=== PATIENT | male | born 1990 | race American Indian/Alaskan Native ===

== ENCOUNTER 2017-01-29 13:23 | Emergency (ER) | payer OTHER ==
[2017-01-29 13:34] VITALS: BP 156/96
[2017-01-29] MEDS ORDERED: TORADOL IM ONE (14:24)
--- NOTE | 2017-01-29 15:26 | XRay Report ---
FINAL REPORT EXAM: XR KNEE 3V RT HISTORY: RT KNEE PAIN TECHNIQUE: AP, oblique, and lateral views of the right knee PRIORS: None. FINDINGS: No acute fracture or dislocation is seen. The soft tissues demonstrate a small suprapatellar joint effusion. Joint spaces are maintained and bony mineralization is normal. IMPRESSION: Small joint effusion. Otherwise, negative views of the right knee.
--- NOTE | 2017-01-29 22:48 | Emergency Department Report ---
Entered by YEIMY CONRAD, acting as scribe for RENEA SIMON NP. ED Lower Extremity HPI - General Chief Complaint: Extremity Injury, Lower Stated Complaint: KNEE Time Seen by Provider: 01/29/17 13:51 Source: patient Mode of arrival: Ambulatory Limitations: No Limitations - History of Present Illness Initial Comments: 26 y/o that is non-toxic, non ill appearing, in no acute distress with a PMHx of CHF, morbid obesity, and bronchitis presents to ED c/o right knee pain that began 4 days ago. Rates pain a 10/10 in severity. Patient stated has history of similar symptoms and was diagnosed with gout by his PCP. Associated symptoms include right knee swelling and tenderness to palpation, but he denies numbness tingling, chest pain, SOB, cough, nausea, vomiting, fever, chills, and headache. Patient denies any recent travels or injury to the extremity. Denies any right knee injury. NKDA. SONG Complaint: other (right knee pain) Onset/Timin -: days(s) Injury: Knee: Right Type of Injury: other (None) Place: home Severity: moderate Severity scale (0 -10): 10 Improves With: NSAID, other (steroid shot) Worsens With: nothing Other Symptoms: other (right knee swelling) Associated Symptoms: swelling (right knee), able to partially bear weight, ambulatory. denies: snap/pop sensation, numbness, tingling, unable to bear weight, other (fever, chills, chest pain, SOB, nausea, and vomiting) - Related Data Home Medications Medication Instructions Recorded Confirmed Last Taken Coreg 25 mg PO BID 08/30/16 08/30/16 Unknown Potassium Chloride 20 meq PO DAILY 08/30/16 08/30/16 Unknown Torsemide 20 mg PO DAILY 08/30/16 08/30/16 Unknown Valsartan 320 mg PO DAILY 08/30/16 08/30/16 Unknown Previous Rx's Medication Instructions Recorded Last Taken Type Aspirin [Aspirin BABY CHEW TAB] 81 mg PO QDAY #30 tab.chew 08/29/15 Unknown Rx Ibuprofen [Motrin 600 MG tab] 600 mg PO Q8H PRN 7 Days 01/29/17 Unknown Rx Prednisone [predniSONE] 1 mg PO QDAY 5 Days 01/29/17 Unknown Rx Allergies Allergy/AdvReac Type Severity Reaction Status Date / Time No Known Allergies Allergy Verified 11/13/14 15:55 ED Review of Systems Comment: All other systems reviewed and negative Constitutional: no symptoms reported. denies: chills, fever, other (tingling) Respiratory: no symptoms reported. denies: cough, shortness of breath Cardiovascular: as per HPI. denies: chest pain Endocrine: no symptoms reported Gastrointestinal: as per HPI. denies: nausea, vomiting Musculoskeletal: as per HPI, joint swelling (right knee), other (right knee pain ) Skin: denies: rash Neurological: denies: numbness ED Past Medical Hx - Past Medical History Previous Medical History?: Yes Hx Congestive Heart Failure: Yes Hx Diabetes: No Hx Asthma: No Hx COPD: No Additional medical history: MORBID obesity, BRONCHITIS - Surgical History Past Surgical History?: No - Social History Smoking Status: Current Every Day Smoker Substance Use Type: Alcohol, Marijuana - Medications Home Medications: Home Medications Medication Instructions Recorded Confirmed Last Taken Type Aspirin [Aspirin BABY CHEW TAB] 81 mg PO QDAY #30 tab.chew 08/29/15 08/30/16 Unknown Rx Coreg 25 mg PO BID 08/30/16 08/30/16 Unknown History Potassium Chloride 20 meq PO DAILY 08/30/16 08/30/16 Unknown History Torsemide 20 mg PO DAILY 08/30/16 08/30/16 Unknown History Valsartan 320 mg PO DAILY 08/30/16 08/30/16 Unknown History Ibuprofen [Motrin 600 MG tab] 600 mg PO Q8H PRN 7 Days 01/29/17 Unknown Rx Prednisone [predniSONE] 1 mg PO QDAY 5 Days 01/29/17 Unknown Rx ED Physical Exam - General Limitations: No Limitations General appearance: alert, in no apparent distress - Head Head exam: Present: atraumatic, normocephalic - Eye Eye exam: Present: normal appearance, EOMI Pupils: Present: normal accommodation - ENT ENT exam: Present: normal exam, mucous membranes moist - Neck Neck exam: Present: normal inspection, full ROM - Respiratory Respiratory exam: Present: normal lung sounds bilaterally. Absent: respiratory distress, wheezes, rales, rhonchi - Cardiovascular Cardiovascular Exam: Present: regular rate, normal rhythm. Absent: systolic murmur, diastolic murmur, rubs, gallop - GI/Abdominal GI/Abdominal exam: Present: soft, normal bowel sounds - Extremities Exam Extremities exam: Present: normal capillary refill. Absent: calf tenderness - Expanded Lower Extremity Exam Right Hip exam: Present: normal inspection, full ROM Upper Leg exam: Present: normal inspection, full ROM Lower Leg exam: Present: normal inspection, full ROM Ankle exam: Present: normal inspection, full ROM Foot/Toe exam: Present: normal inspection, full ROM Neuro vascular tendon exam: Present: no vascular compromise. Absent: pulse deficit, abnormal cap refill, motor deficit, sensory deficit, tendon deficit, pallor, abnormal 2-point discrimination - Back Exam Back exam: Present: normal inspection, full ROM - Neurological Exam Neurological exam: Present: alert, oriented X3 - Psychiatric Psychiatric exam: Present: normal affect, normal mood - Skin Skin exam: Present: warm, dry, intact. Absent: rash ED Course Vital Signs 01/29/17 01/29/17 13:31 14:37 Temperature 98.1 F Pulse Rate 86 Respiratory 18 18 Rate Blood Pressure 156/96 O2 Sat by Pulse 96 Oximetry ED Lower Extremity MDM - Medical Decision Making ED course: This is a 26-year-old male that presents with gout of the right knee 1- after a physical exam and history patient presents with a gout of the right knee. Patient received Toradol IM 60 mg in the ED and Solu-Medrol 4 mg IM. Patient tolerated well with no signs of distress noted. 2- patient received ibuprofen 600 mg by mouth and prednisone 4 mg at the time of discharge. 3- patient was instructed to follow-up with his primary care doctor in 3-5 days or if symptoms worsen report back to emergency room. 4- x-ray was obtained of the right knee. Results; negative for fractures with small joint effusion noted. 5- at the time of discharge the patient does not seem toxic or ill in appearance. No signs of any distress noted. Patient agrees to discharge treatment plan of care. No further questions noted by the patient. ED Disposition Clinical Impression: Gout Qualifiers: Gout site: knee Gout etiology: unspecified cause Laterality: right Chronicity: unspecified Qualified Code(s): M10.9 - Gout, unspecified Disposition: DISCHARGED TO HOME OR SELFCARE Is pt being admited?: No Does the pt Need Aspirin: No Condition: Stable Instructions: Acute Gouty Arthritis (ED) Additional Instructions: Follow-up with your primary care doctor in 3-5 days. Take ibuprofen as prescribed as needed. Take full course of prednisone as prescribed. Prescriptions: Ibuprofen [Motrin 600 MG tab] 600 mg PO Q8H PRN 7 Days PRN Reason: Pain Prednisone [predniSONE] 1 mg PO QDAY 5 Days Referrals: GINI WILL MD [Referring] - 3-5 Days [facility] [Outside] - 3-5 Days [facility] [Outside] - 3-5 Days Forms: Work/School Release Form(ED) This documentation as recorded by the ANAMARIA romero JASMINE,accurately reflects the service I personally performed and the decisions made by AURORA alford MARTIN, CINDY.
== END 2017-01-29 15:52 | disposition home or self-care (01) ==
LOC: ED 13:23
DX: M10.9 Gout, unspecified (principal); I50.9 Heart failure, unspecified; E66.01 Morbid (severe) obesity due to excess calories; F17.200 Nicotine dependence, unspecified, uncomplicated; F12.10 Cannabis abuse, uncomplicated
CPT/HCPCS: 73562; 96372; 99283; J1885; J2920

== ENCOUNTER 2017-02-08 14:17 | Emergency (ER) | payer OTHER ==
[2017-02-08 14:37] VITALS: BP 171/103
--- NOTE | 2017-02-08 16:45 | Emergency Department Report ---
ED Lower Extremity HPI - General Chief Complaint: Extremity Injury, Lower Stated Complaint: LEFT FOOT SWOLLEN Time Seen by Provider: 02/08/17 15:55 Source: patient Mode of arrival: Wheelchair Limitations: Physical Limitation - History of Present Illness MD Complaint: foot injury - Related Data Home Medications Medication Instructions Recorded Confirmed Last Taken Coreg 25 mg PO BID 08/30/16 08/30/16 Unknown Potassium Chloride 20 meq PO DAILY 08/30/16 08/30/16 Unknown Torsemide 20 mg PO DAILY 08/30/16 08/30/16 Unknown Valsartan 320 mg PO DAILY 08/30/16 08/30/16 Unknown Previous Rx's Medication Instructions Recorded Last Taken Type Aspirin [Aspirin BABY CHEW TAB] 81 mg PO QDAY #30 tab.chew 08/29/15 Unknown Rx Ibuprofen [Motrin 600 MG tab] 600 mg PO Q8H PRN 7 Days 01/29/17 Unknown Rx Prednisone [predniSONE] 1 mg PO QDAY 5 Days 01/29/17 Unknown Rx HYDROcodone/APAP 5-325 [[place] 1 each PO Q8H PRN #12 tablet 02/08/17 Unknown Rx 5/325] Allergies Allergy/AdvReac Type Severity Reaction Status Date / Time No Known Allergies Allergy Verified 11/13/14 15:55 ED Review of Systems ROS: Stated complaint: LEFT FOOT SWOLLEN Other details as noted in HPI ED Past Medical Hx - Past Medical History Previous Medical History?: Yes Hx Congestive Heart Failure: Yes Hx Diabetes: No Hx Asthma: No Hx COPD: No Additional medical history: MORBID obesity, BRONCHITIS - Surgical History Past Surgical History?: No - Social History Smoking Status: Current Every Day Smoker Substance Use Type: Prescribed - Medications Home Medications: Home Medications Medication Instructions Recorded Confirmed Last Taken Type Aspirin [Aspirin BABY CHEW TAB] 81 mg PO QDAY #30 tab.chew 08/29/15 08/30/16 Unknown Rx Coreg 25 mg PO BID 08/30/16 08/30/16 Unknown History Potassium Chloride 20 meq PO DAILY 08/30/16 08/30/16 Unknown History Torsemide 20 mg PO DAILY 08/30/16 08/30/16 Unknown History Valsartan 320 mg PO DAILY 08/30/16 08/30/16 Unknown History Ibuprofen [Motrin 600 MG tab] 600 mg PO Q8H PRN 7 Days 01/29/17 Unknown Rx Prednisone [predniSONE] 1 mg PO QDAY 5 Days 01/29/17 Unknown Rx HYDROcodone/APAP 5-325 [[place] 1 each PO Q8H PRN #12 tablet 02/08/17 Unknown Rx 5/325] ED Physical Exam - General Limitations: Physical Limitation ED Course Vital Signs 02/08/17 14:31 Temperature 98.3 F Pulse Rate 88 Respiratory 22 Rate Blood Pressure 171/103 O2 Sat by Pulse 95 Oximetry Critical care attestation.: If time is entered above; I have spent that time in minutes in the direct care of this critically ill patient, excluding procedure time. ED Disposition Clinical Impression: Gout attack Qualifiers: Gout site: foot Gout etiology: unspecified cause Laterality: left Qualified Code(s): M10.9 - Gout, unspecified Disposition: LEFT AGAINST MEDICAL ADVICE Is pt being admited?: No Does the pt Need Aspirin: No Condition: Stable Instructions: Acute Gouty Arthritis (ED), Against Medical Advice (ED) Prescriptions: HYDROcodone/APAP 5-325 [Roundup 5/325] 1 each PO Q8H PRN #12 tablet PRN Reason: Pain Referrals: SHRUTHI GALLARDO MD [Staff Physician] - 3-5 Days Forms: AMA Form Time of Disposition: 17:00
[2017-02-08] MEDS ORDERED: MORPHINE IM ONE (16:58)
[2017-02-08] MEDS ORDERED: MORPHINE ONE (17:09)
[2017-02-08 17:41] LABS: Anion Gap 18 mmol/L; Blood Urea Nitrogen 6 mg/dL (9-20); Carbon Dioxide 25 mmol/L (22-30); Chloride 103.7 mmol/L (98-107); Glucose 99 mg/dL (75-100); Sodium 143 mmol/L (137-145)
== END 2017-02-08 17:29 | disposition left against medical advice (07) ==
LOC: ED 14:17
DX: M10.9 Gout, unspecified (principal); Z79.82 Long term (current) use of aspirin; I50.9 Heart failure, unspecified; E66.01 Morbid (severe) obesity due to excess calories
CPT/HCPCS: 36415; 80048; 96372; 99283; J2270

== ENCOUNTER 2017-03-18 03:45 | Emergency (ER) | payer OTHER ==
--- NOTE | 2017-03-18 04:54 | XRay Report ---
FINAL REPORT PROCEDURE: XR ANKLE 2V LT TECHNIQUE: LEFT ankle radiographs, AP and lateral views. HISTORY: left ankle and foot swelling/pain COMPARISON: No prior studies are available for comparison. FINDINGS: Fracture (s) and/or Dislocation(s): None. Alignment: Normal. Joint space(s): Normal. Soft tissues: Moderate soft tissue swelling Bone mineralization: Normal. Foreign bodies: Normal. Calcaneal spurring: Normal. IMPRESSION: No acute fracture or dislocation. Moderate soft tissue swelling diffusely.
[2017-03-18] MEDS ORDERED: PERCOCET 5/325 PO ONE (06:02)
[2017-03-18] MEDS ORDERED: DECADRON IM ONE (06:02)
[2017-03-18] MEDS ORDERED: TORADOL IM ONE (06:02)
--- NOTE | 2017-03-18 06:02 | Emergency Department Report ---
HPI - General Chief Complaint: Extremity Injury, Lower Time Seen by Provider: 03/18/17 06:01 - HPI HPI: Patient here reports that he has left ankle pain and swelling times one day. Patient does report that he has a history of gout and was given medication in the past for gout. Patient has a history of high blood pressure, congestive heart failure. He is morbidly obese. when asked, patient admits to eat in fish and drinking alcohol over the last couple days. Denies any shortness of breath or chest pain. Denies any nausea or vomiting. He reports that the pain is 10 out of 10 and throbbing in and did not have any injuries. Denies taking any pain medication. He was reported in triage noted that patient twisted is ankle but he denies that he twisted his ankle. ED Past Medical Hx - Past Medical History Previous Medical History?: Yes Hx Congestive Heart Failure: Yes Hx Diabetes: No Hx Asthma: No Hx COPD: No Additional medical history: MORBID obesity, BRONCHITIS, Gout - Surgical History Past Surgical History?: No - Family History Family history: CAD/TX, hypertension, other (gout) - Social History Smoking Status: Never Smoker Substance Use Type: Alcohol, Marijuana - Medications Home Medications: Home Medications Medication Instructions Recorded Confirmed Last Taken Type Aspirin [Aspirin BABY CHEW TAB] 81 mg PO QDAY #30 tab.chew 08/29/15 08/30/16 Unknown Rx Coreg 25 mg PO BID 08/30/16 08/30/16 Unknown History Potassium Chloride 20 meq PO DAILY 08/30/16 08/30/16 Unknown History Torsemide 20 mg PO DAILY 08/30/16 08/30/16 Unknown History Valsartan 320 mg PO DAILY 08/30/16 08/30/16 Unknown History Ibuprofen [Motrin 600 MG tab] 600 mg PO Q8H PRN 7 Days 01/29/17 Unknown Rx Prednisone [predniSONE] 1 mg PO QDAY 5 Days 01/29/17 Unknown Rx HYDROcodone/APAP 5-325 [[place] 1 each PO Q8H PRN #12 tablet 02/08/17 Unknown Rx 5/325] Naproxen [Naprosyn TAB] 500 mg PO BID PRN #10 tablet 03/18/17 Unknown Rx predniSONE [Deltasone] 20 mg PO QDAY #5 tab 03/18/17 Unknown Rx ED Review of Systems ROS: Stated complaint: TWISTED ANKLE Other details as noted in HPI Comment: All other systems reviewed and negative Constitutional: denies: chills, fever Respiratory: no symptoms reported Cardiovascular: denies: chest pain, palpitations, edema, syncope Gastrointestinal: denies: abdominal pain, nausea, vomiting Musculoskeletal: joint swelling, arthralgia. denies: back pain, myalgia Neurological: denies: headache, weakness, numbness, paresthesias, confusion, abnormal gait, vertigo Physical Exam - Physical Exam Vital Signs: Vital Signs 03/18/17 04:16 Temperature 98.4 F Pulse Rate 85 Respiratory 24 Rate Blood Pressure 157/108 O2 Sat by Pulse 97 Oximetry General: This is a 26-year-old morbidly obese male here complaining of left ankle pain and swelling in. Physical Exam: Head: Normocephalic atraumatic Mouth: Moist, no pharyngeal exudate or erythema. Uvula is midline and oral airway is patent. No facial swelling. No peritonsillar abscesses. Neck: Supple, no C-spine tenderness, no tracheal deviation. Nontender to palpate. no adenopathy Abdomen: Obese, Soft, nontender to palpate in all quadrants, normal bowel sounds in all quadrant and negative CVA tenderness bilaterally. Eyes: Bilateral pupils equal and reactive to light, bilateral EOM intact. Bilateral sclera and conjunctiva without injection. Normal accommodation. Lungs: Clear to auscultate bilaterally no rhonchi wheezes or rales. Normal work of breathing extremity; No CC. Patient with swelling And tenderness to palpate left outer ankle. Area is warm to touch. +2 pulses. No neurovascular compromise. No joint crepitus, deformity or effusion noted. Full range of motion to all extremities.+5 strength in all extremities Cardiovascular: S1-S2, regular rate rhythm. Skin: clean Dry and intact no rash no lesions area is Psych: Normal mood and behavior ED Course Vital Signs 03/18/17 04:16 Temperature 98.4 F Pulse Rate 85 Respiratory 24 Rate Blood Pressure 157/108 O2 Sat by Pulse 97 Oximetry Vital Signs 03/18/17 03/18/17 04:16 06:45 Temperature 98.4 F Pulse Rate 85 77 Respiratory 24 20 Rate Blood Pressure 157/108 Blood Pressure 147/74 [Left] O2 Sat by Pulse 97 96 Oximetry - Reevaluation(s) Reevaluation #1: 03/18/17 06:44 Patient given Percocet 5/325 2 tablets, Toradol 30 mg IM and Decadron 10 mg IM and emergency room for gout flareup. Blood pressure is better and patient said his pain is better. ED Medical Decision Making - Radiology Data Radiology results: report reviewed X-ray of left ankle revealed no fracture or dislocation. Moderate soft tissue swelling noted. - Medical Decision Making ED course: Patient is status post.flareup after drinking alcohol and eating fish. He was treated in emergency room with Decadron 10 mg IM, Toradol 30 mg IM and Percocet 5/325 2 tablets by mouth. I discussed the patient that he needs to avoid food that is high in purine and to refer to discharge instruction paperwork for detail. 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 Critical care attestation.: If time is entered above; I have spent that time in minutes in the direct care of this critically ill patient, excluding procedure time. ED Disposition Clinical Impression: Arthralgia of left ankle Gout flare Qualifiers: Gout site: ankle Gout etiology: unspecified cause Laterality: left Qualified Code(s): M10.9 - Gout, unspecified Disposition: DC-01 TO HOME OR SELFCARE Is pt being admited?: No Does the pt Need Aspirin: No Condition: Stable Instructions: Arthralgia (ED), Acute Gouty Arthritis (ED), Low Purine Diet (ED) Additional Instructions: Please see discharge paperwork for that is low in. Take medication as prescribed See primary care physician that you were referred to a discharge paperwork. Prescriptions: Naproxen [Naprosyn TAB] 500 mg PO BID PRN #10 tablet PRN Reason: GOUT FLARE predniSONE [Deltasone] 20 mg PO QDAY #5 tab Referrals: JAYY GANT MD [Staff Physician] - 03/22/17 Forms: Work/School Release Form(ED)
[2017-03-18 06:46] VITALS: BP 147/74
== END 2017-03-18 06:57 | disposition home or self-care (01) ==
LOC: ED 03:45
DX: M10.9 Gout, unspecified (principal); M25.572 Pain in left ankle and joints of left foot; I50.9 Heart failure, unspecified; E66.01 Morbid (severe) obesity due to excess calories; F12.90 Cannabis use, unspecified, uncomplicated; Z79.82 Long term (current) use of aspirin
CPT/HCPCS: 73600; 96372; 99283; J1100; J1885

== ENCOUNTER 2017-06-05 01:36 | Emergency (ER) | payer OTHER ==
[2017-06-05 01:41] VITALS: BP 160/108
== END 2017-06-05 03:10 | disposition left against medical advice (07) ==
LOC: ED 01:36
DX: M25.511 Pain in right shoulder (principal); Z53.21 Procedure and treatment not carried out due to patient leaving prior to being seen by health care provider